=== PATIENT | female | born 1975 | race Asian ===

== ENCOUNTER 2025-10-08 12:16 | Emergency (ER) | payer OTHER ==
[~2025-10-08] VITALS: Ht 161.3 cm; Wt 56.4 kg
[2025-10-08 14:22] VITALS: TEMP 97.9
[2025-10-08 14:36] LABS: PH,URINE DRUG SCREEN 5.5 (5.0-8.0)
[2025-10-08 14:37] LABS: PLATELET COUNT (AUTO) 313 K/uL (150-450); RED BLOOD CELL COUNT(AUTO) 3.73 MIL/uL (4.00-5.20); RED CELL DISTRIBUTION WIDTH 14.0 % (11.5-14.5); WHITE BLOOD COUNT (AUTO) 6.9 K/uL (4.5-11.0)
[2025-10-08 14:42] LABS: CALCIUM, TOTAL 8.6 mg/dL (8.8-10.5); CREATININE 0.81 mg/dL (0.60-1.30); GLOMERULAR FILTR. RATE CALC > 60 mL/min (>60); GLUCOSE,RANDOM 72 mg/dL (70-110); SODIUM SERUM 141 mmol/L (136-145); UREA NITROGEN, BLOOD 20 mg/dL (7-18)
[2025-10-08 14:42] LABS: ALCOHOL, URINE DRUG SCREEN POSITIVE (NEGATIVE); AMPHET/METH SCREEN,URINE NEGATIVE (NEGATIVE); BARBITURATE SCREEN, URINE NEGATIVE (NEGATIVE); CANNABINOID SCREEN,URINE NEGATIVE (NEGATIVE); COCAINE SCREEN,URINE NEGATIVE (NEGATIVE); METHADONE SCREEN, URINE NEGATIVE (NEGATIVE)
[2025-10-08] MEDS: PERTUSS(ACELL),DIPH,TET/PF 0.5 ML SYRINGE [ADULT] IM. ONE (15:27)
[2025-10-08] MEDS: BACITRACIN 0.9 GM PACKET OINTMENT TP ONE (15:31)
[2025-10-08 15:35] LABS: COVID AG,FIA SOURCE NASAL SWAB
[2025-10-08 16:58] LABS: SARS-COV2 (COVID) ANTIGEN,FIA Negative (Negative)
[2025-10-08 19:48] VITALS: BP 166/87; PULSE 94; RESP 16; O2SAT 99
== END 2025-10-08 23:10 | disposition short-term general hospital (02) ==
LOC: EMS 12:16
DX: S50.812A Abrasion of left forearm, initial encounter (principal); F32.9 Major depressive disorder, single episode, unspecified; R45.851 Suicidal ideations; E78.00 Pure hypercholesterolemia, unspecified; M19.90 Unspecified osteoarthritis, unspecified site; Z20.822 Contact with and (suspected) exposure to COVID-19; Z88.0 Allergy status to penicillin; X58.XXXA Exposure to other specified factors, initial encounter; Y93.89 Activity, other specified; Y92.89 Other specified places as the place of occurrence of the external cause; Y99.8 Other external cause status
CPT/HCPCS: 99285; 87426; 80048; 84703; 85025; 36415; 90715; 90471; 80307; G0480